=== PATIENT | female | born 1980 | race Caucasian/White ===

== ENCOUNTER → 2020-08-25 14:21 | Outpatient (CLI) | payer MEDICAID, SELFPAY ==
[2020-08-25 13:38] VITALS: BMI 32.9
[2020-08-25 15:44] LABS: Erythrocyte Sedimentation Rate 8 mm/hr (0-20)
[2020-08-25 16:20] LABS: Free T3 2.8 pg/mL (2.18-3.98); Thyroid Stim Hormone (TSH) 0.56 uIU/mL (0.358-3.74)
[2020-08-27 11:03] LABS: Thyroid Peroxidase AB < 9 IU/mL (0-34)
== END ==
PROVIDERS: PCP Family Medicine; Visit Provider Internal Medicine Endocrinology, Diabetes & Metabolism
DX: E07.9 Disorder of thyroid, unspecified (principal); M25.50 Pain in unspecified joint
CPT/HCPCS: 36415; 84439; 84443; 84481; 85652; 86376

== ENCOUNTER → 2024-02-07 | Outpatient (CLI) | payer OTHER, SELFPAY ==
[2024-02-07 18:07] LABS: Absolute Lymphocyte Count 3.26 X10^3/uL (0.83-4.51); Basophil# 0.06 X10^3/uL; Basophil% 0.6 % (0-1); Eosinophil# 0.21 X10^3/uL; Eosinophils% 2.3 % (0-5); Hematocrit 42.1 % (37-47); Hemoglobin 13.8 g/dL (12.0-15.0); Lymphocyte # 3.26 X10^3/ul (0.83-4.51); Lymphocyte % 35.3 % (19-41); Mean Corp Hgb Conc 32.8 g/dL (32-36); Mean Corpuscular Hgb 30.3 pg (27.0-32.0); Mean Corpuscular Volume 92.3 fL (81-99); Mean Platelet Vol. 10.5 fl (6.2-12.0); Monocyte# 0.74 X10^3/uL; NRBC Flagged by Analyzer 0 % (0-5); Neutrophil # 4.95 X10^3/uL (2.7-7.7); Neutrophil % 53.6 % (47-70); Platelet Count 235 K/mm3 (150-450); RBC Distribution Width CV 12.7 % (11.6-14.6); RBC Distribution Width SD 42.6 fl (35.1-43.9); Red Blood Count 4.56 M/mm3 (4.2-5.4); White Blood Count 9.2 K/mm3 (4.4-11.0)
[2024-02-07 18:30] LABS: Hemoglobin A1c 5.8 % (3.8-5.6)
[2024-02-07 18:46] LABS: ALB/GLOB Ratio 1.4 RATIO (0.9-2.4); AST(SGOT) 14 U/L (15-37); Alanine Aminotransfer ALT/SGPT 27 U/L (13-56); Albumin, Serum 4.4 g/dL (3.2-5.0); Alkaline Phosphatase 87 U/L (45-117); Anion Gap 9 (5-15); BUN 10 mg/dL (7-18); Calcium,Total 9.3 mg/dL (8.5-10.1); Chloride 106 mmol/L (98-107); Cholesterol 115 mg/dL (200); Creatinine, Serum 0.84 mg/dL (0.55-1.02); EST Glomerular Filtration Rate 80 mL/min (>60); Est Glom Filt Rate - Afr Amer 96 mL/min (>60); Estradiol 129.2 pg/mL; Follicle Stimulating Hormone 2.9 mIU/mL; Free T3 2.5 pg/mL (2.18-3.98); Globulin 3.1 g/dL (2.2-4.2); Glucose 97 mg/dL (74-106); High Density Lipoprotein 59 mg/dL; Magnesium 1.9 mg/dL (1.6-2.6); Potassium 3.9 mmol/L (3.5-5.1); Protein, Total 7.5 g/dL (6.4-8.2); Sodium Level 140 mmol/L (136-145); T4 Free Direct 1.11 ng/dL (0.76-1.46); Thyroid Stim Hormone (TSH) 0.86 uIU/mL (0.358-3.74); Triglycerides 163 mg/dL; Very Low Density Lipoprotein 33 mg/dL (5-40)
[2024-02-07 19:09] LABS: Progesterone Level 3.01 ng/mL (See Comment)
== END | disposition home or self-care (01) ==
LOC: LAB 17:30
PROVIDERS: PCP Family Medicine; Referring Provider Obstetrics & Gynecology Gynecology; Visit Provider Obstetrics & Gynecology Gynecology
DX: E34.9 Endocrine disorder, unspecified (principal); N89.8 Other specified noninflammatory disorders of vagina; R53.81 Other malaise; R53.83 Other fatigue; R07.89 Other chest pain; R00.2 Palpitations; E78.5 Hyperlipidemia, unspecified; Z82.49 Family history of ischemic heart disease and other diseases of the circulatory system; Z83.2 Family history of diseases of the blood and blood-forming organs and certain disorders involving the immune mechanism
CPT/HCPCS: 36415; 80053; 80061; 81241; 81291; 82627; 82670; 83001; 83036; 83735; 84144; 84402; 84403; 84439; 84443; 84481; 85025; 85302; 85305; 85306; 86376; 82626

== ENCOUNTER → 2024-02-20 | Outpatient (CLI) | payer OTHER, SELFPAY ==
--- NOTE | 2024-02-20 07:48 | BI_ITS ---
MAMMOGRAPHY - BILATERAL SCREENING REASON FOR EXAM: Female, 43 years old. Routine annual screening examination. PERTINENT HISTORY: Aunt with breast cancer. TECHNIQUE: Digital bilateral breast kelly (3D mammographic acquisition) in the CC and MLO projections. 2-D mediolateral oblique (MLO) and craniocaudad (CC) views of both breasts were obtained. CAD: Full Field Digital Mammography with Computer Added Detection was performed. COMPARISON: Comparison is made with prior outside examination February 12, 2023. FINDINGS: Breast Composition: The breasts are heterogeneously dense, which may obscure small masses. There are no dominant masses or suspicious calcifications. Stable small benign-appearing bilateral axillary lymph nodes. No other significant abnormalities are identified. There has been no significant change since the prior study. BI/SCRN MAMM (CAD)W/KELLY BILAT IMPRESSION: Stable bilateral screening mammogram. Yearly follow-up mammogram recommended. (A) ASSESSMENT CATEGORY: BIRADS Category 2: Benign. A letter regarding these results will be sent to the patient by the facility within 30 days. Approximately 10% of breast cancers are not detected by mammography. A normal mammogram should not delay biopsy of a clinically suspicious abnormality. [id number] Electronically Signed: Huber Jensen MD at 9:35 EDT ,
== END | disposition home or self-care (01) ==
LOC: OPBI 07:46
PROVIDERS: PCP Family Medicine; Referring Provider Obstetrics & Gynecology Gynecology; Visit Provider Obstetrics & Gynecology Gynecology
DX: Z12.31 Encounter for screening mammogram for malignant neoplasm of breast (principal)
CPT/HCPCS: 77063; 77067

== ENCOUNTER → 2024-04-28 | Outpatient (CLI) | payer OTHER, SELFPAY ==
[2024-04-28 18:21] LABS: Magnesium 2.3 mg/dL (1.6-2.6)
== END | disposition home or self-care (01) ==
PROVIDERS: PCP Family Medicine; Referring Provider Internal Medicine Cardiovascular Disease; Visit Provider Internal Medicine Cardiovascular Disease
DX: I47.29 Other ventricular tachycardia (principal); R06.02 Shortness of breath; R07.9 Chest pain, unspecified; R00.2 Palpitations
CPT/HCPCS: 36415; 83735

== ENCOUNTER → 2024-04-29 | Outpatient (CLI) | payer OTHER, SELFPAY ==
--- NOTE | 2024-04-29 12:37 | ECHOD_ITS ---
Reason For Study: CHEST PAIN Procedure This was a 2D Doppler, Color Flow transthoracic echocardiogram. Exam performed in department. Left Ventricle Mild concentric left ventricular hypertrophy. Normal LV size. The left ventricular ejection fraction is 65 %. No evidence for diastolic dysfunction. Right Ventricle Normal right ventricle. Atria The left and right atria are normal. Mitral Valve The mitral valve is structurally normal. No prolapse or stenosis seen. Tricuspid Valve Trivial tricuspid valve insufficiency. Normal pulmonary artery pressure. Aortic Valve Trisinus/trileaflet aortic valve. Pulmonic Valve The pulmonic valve is not well visualized. Great Vessels Normal sized aortic root. Pericardium/Pleural No pericardial effusion. MMode/2D Measurements & Calculations LVIDd: 4.3 cm IVSd: 1.2 cm LVOT diam: 2.0 cm LVIDs: 2.6 cm LVPWd: 1.0 cm LVOT area: 3.0 cm2 RVDd: 3.6 cm FS: 40.0 % Ao root diam: 3.2 cm LAV(MOD-bp): 35.5 ml LVAd ap4: 23.8 cm2 LAV(MOD-bp) Indexed: 16.7 ml/m2 LVLd ap4: 7.8 cm LAV(MOD-sp2): 36.7 ml EDV(MOD-sp4): 59.2 ml LAV(MOD-sp4): 34.4 ml EDV(sp4-el): 61.9 ml LVAs ap4: 11.7 cm2 LVLs ap4: 6.4 cm ESV(MOD-sp4): 18.5 ml ESV(sp4-el): 18.0 ml EF(MOD-sp4): 68.7 % EF(sp4-el): 71.0 % LVAd ap2: 21.6 cm2 SV(MOD-sp4): 40.7 ml SV(MOD-sp2): 31.6 ml LVLd ap2: 7.7 cm EDV(MOD-sp2): 49.5 ml EDV(sp2-el): 51.3 ml LVAs ap2: 11.6 cm2 LVLs ap2: 6.3 cm ESV(MOD-sp2): 17.9 ml ESV(sp2-el): 17.9 ml EF(MOD-sp2): 63.9 % SV(sp4-el): 43.9 ml LA dimension(2D): 3.6 cm LA A4 area: 15.2 cm2 RA A4 area: 11.5 cm2 TAPSE: 2.0 cm Time Measurements MV dec time: 0.19 sec Doppler Measurements & Calculations MV E max robert: 68.2 cm/sec Lat Peak E' Robert: 12.3 cm/sec Med Peak E' Robert: 8.9 cm/sec MV A max robert: 65.2 cm/sec E/E' lat: 5.5 E/E' med: 7.6 MV E/A: 1.0 Ao V2 max: 126.0 cm/sec LV V1 max: 113.5 cm/sec MV dec slope: 365.9 cm/sec2 Ao max P.4 mmHg LV V1 max P.1 mmHg Ao V2 mean: 82.7 cm/sec LV V1 mean P.7 mmHg Ao mean P.2 mmHg LV V1 mean: 77.3 cm/sec Ao V2 VTI: 26.2 cm LV V1 VTI: 23.2 cm AV (velocity ratio): 0.88 ELIAS(I,D): 2.7 cm2 ELIAS(V,D): 2.7 cm2 SV(LVOT): 69.6 ml PA V2 max: 84.2 cm/sec TR max robert: 173.0 cm/sec PA max PG (full): 0.91 mmHg TR max P.0 mmHg ECHO/Echo Complete Interpretation Summary Mild concentric left ventricular hypertrophy. The left ventricular ejection fraction is 65 %. Ordering Physician: Jf Iraheta Referring Physician: Jf Iraheta MD Performed By: Deyanira Muller RDCS
--- NOTE | 2024-04-29 12:45 | CT_ITS ---
STUDY: CT CHEST WITH CONTRAST REASON FOR EXAM: Female, 43 years old. Chest pain, limited chest over read only RADIATION DOSAGE (If Supplied By Facility): CTDIvol = ( 55.63 ) mGy, DLP = ( 2628.43 ) mGycm TECHNIQUE: Transaxial imaging was performed following intravenous administration of IV 75mL Isovue-370. Individualized dose optimization techniques were used for this CT. COMPARISON: No relevant priors. FINDINGS: CHEST The lungs are normal. There is no demonstrated pleural abnormality. Normal heart and pericardium. Normal mediastinum. Normal hilar regions. Normal unenhanced pulmonary arteries. Normal aorta arch and descending thoracic aorta. Normal osseous structures. Fatty infiltration of the liver. Small hiatal hernia. CT/Limited Chest CT Cardiac Only IMPRESSION: Normal enhanced CT chest. Electronically Signed: Huber Jensen MD at 15:48 EDT ,
[2024-04-29 12:51] VITALS: BP 161/94; PULSE 85; RESP 18; TEMP 36.5; O2SAT 99; BMI 41.1
[2024-04-29] MEDS: 0.9% Saline Lock 10 ML Syringe IV (13:00)
[2024-04-29 13:39] VITALS: BP 140/86; PULSE 77
[2024-04-29] MEDS: Nitroglycerin SL (ED/IMG/CATH) 0.4 MG TABLET SL (13:39)
[2024-04-29 13:42] VITALS: BP 140/86; PULSE 77; RESP 18; O2SAT 94
--- NOTE | 2024-04-29 17:18 | CCTA.WCONT ---
CCTA w/Cont Coronary Arteries Date of Study:: 04/29/24 Cardiac dysrhythmia Coronary Calcium Scoring: High-resolution Computed Tomographic imaging of the chest was performed on [04/29/2024], with particular attention paid to the coronary arteries. Intravenous contrast agent was administered per protocol and images reconstructed and displayed. LEFT MAIN CORONARY ARTERY: This arises from the left main coronary cusp and bifurcates to left anterior descending artery and left circumflex artery no significant stenosis or calcification is noted [] LEFT ANTERIOR DESCENDING CORONARY ARTERY: Medium size vessel with no significant calcification or stenosis noted. [] LEFT CIRCUMFLEX CORONARY ARTERY: The left circumflex artery arises from the left main coronary artery and gives of the first obtuse marginal branch with no significant stenosis noted. No calcification is present. [] RIGHT CORONARY ARTERY: Dominant right coronary artery with no significant stenosis present. No calcification is noted. [] THORACIC AORTA: Normal size [] PULMONARY ARTERY: Normal size [] LEFT ATRIUM/APPENDAGE: Not well-visualized [] MITRAL VALVE: Structurally normal [] AORTIC VALVE: Trileaflet [] LEFT VENTRICLE: Normal size [] CORONARY CALCIUM SCORE: 0 Conclusion: Coronary CTA with coronary calcium score of 0 and no significant atherosclerotic plaquing or stenosis noted. []
== END | disposition home or self-care (01) ==
LOC: CT 12:36
PROVIDERS: PCP Family Medicine; Referring Provider Internal Medicine Cardiovascular Disease; Visit Provider Internal Medicine Cardiovascular Disease
DX: I47.29 Other ventricular tachycardia (principal); E78.5 Hyperlipidemia, unspecified; R07.9 Chest pain, unspecified; R06.02 Shortness of breath; R00.2 Palpitations
CPT/HCPCS: 75571; 75574; 76380; 93306; Q9967; A4216